=== PATIENT | female | born 2000 | race Caucasian/White ===

== ENCOUNTER 2024-11-10 19:14 | Emergency (ER) | payer BC, SELFPAY ==
[2024-11-10 19:15] VITALS: BP 128/69; PULSE 73; RESP 18; TEMP 36.9; O2SAT 100; BMI 31.7
[2024-11-10 20:11] LABS: Absolute Lymphocyte Count 1.27 X10^3/uL (0.83-4.51); Absolute Neutrophil Count 8.3 X10^3/uL (2.0-7.7); Basophil# 0.04 X10^3/uL; Basophil% 0.4 % (0-1); Eosinophil# 0.06 X10^3/uL; Eosinophils% 0.6 % (0-5); Hematocrit 40.3 % (37-47); Lymphocyte # 1.27 X10^3/ul (0.83-4.51); Lymphocyte % 12.4 % (19-41); Mean Corp Hgb Conc 32.3 g/dL (32-36); Mean Corpuscular Hgb 27.8 pg (27.0-32.0); Mean Corpuscular Volume 86.3 fL (81-99); Mean Platelet Vol. 9.5 fl (6.2-12.0); Monocyte# 0.54 X10^3/uL; Monocyte% 5.3 % (0-10); NRBC Flagged by Analyzer 0 % (0-5); Neutrophil % 81.1 % (47-70); Platelet Count 261 K/mm3 (150-450); RBC Distribution Width SD 40.2 fl (35.1-43.9); Red Blood Count 4.67 M/mm3 (4.2-5.4); White Blood Count 10.2 K/mm3 (4.4-11.0)
[2024-11-10 20:17] LABS: Internal QC Validated? YES +Cl - CLEAR BKGD; Pregnancy, Serum, hCG Quali. NEGATIVE Negative
--- NOTE | 2024-11-10 20:20 | ED.VIS.GI ---
HPI HPI - GI History of Present Illness Chief Complaint: Abd Pain Informant: patient and spouse/S.O. Narrative Narrative: 24-year-old female presenting to the emergency room with abdominal pain. Patient states that yesterday around 15 to 1600 hours she developed a pain in her lower abdomen. She has been taking Motrin and notes that it does seem to help. She states though that the pain is becoming more severe. Is still rather intermittent. She notes some dysuria at the end of urination. She is currently menstruating. She has not had any fever or diarrhea. No abdominal swelling. She notes no prior abdominal surgeries. No history of kidney stones. She does note some radiation towards the side into her back. PFSH PFSH Home Medications ?Medication ?Instructions ?Recorded ?Last Taken ?Type ondansetron 4 mg disintegrating 4 mg PO Q6H PRN PRN Nausea #15 tabs 11/10/24 Unknown Rx tablet phenazopyridine 200 mg tablet 200 mg PO TID #9 tabs 11/10/24 Unknown Rx (Pyridium) sulfamethoxazole 800 1 tab PO BID #9 TABLETS 11/10/24 Unknown Rx mg-trimethoprim 160 mg tablet Allergy/AdvReac Type Severity Reaction Status Date / Time No Known Allergies Allergy Verified 11/10/24 19:15 Surgical History H/O wisdom tooth extraction Social History household members: significant other current occupational status: employed Smoking Status: Never smoker ROS ROS ED Constitutional Constitutional ED: Denies chills, fever(s) or weight loss Eyes Eyes: Denies change in vision or diplopia ENT ENT ED: Denies ear pain, rhinorrhea or sore throat Cardiovascular Cardiovascular: Denies chest pain, orthopnea, palpitations or racing heartbeat Respiratory/Chest Respiratory/Chest: Denies cough, dyspnea or orthopnea Gastrointestinal Gastrointestinal: Reports abdominal pain and nausea; Denies diarrhea or vomiting Genitourinary Genitourinary ED: Reports dysuria; Denies hematuria or urinary frequency Musculoskeletal Musculoskeletal: Denies arthralgias or myalgias Integumentary Denies abscess or rash Neurologic Neurologic: Denies headache(s) or weakness Psychiatric Psychiatric: Denies anxiety, depression, suicidal ideation or suicidal thoughts Endocrine Endocrinology: Denies polydipsia, polyphagia or polyuria Allergic/Immunologic Allergic/Immunologic ED: Denies mouth swelling, tongue swelling or urticaria EXAM Physical Exam Const Vital Signs: 11/10/24 19:15 11/10/24 21:15 Temperature 98.4 F Temperature Source Oral Pulse Rate 73 63 Respiratory Rate 18 14 Blood Pressure 128/69 H 120/70 Blood Pressure Mean 88 86 Pulse Ox 100 100 Oxygen Delivery Method Room Air Positive well nourished and well developed General Appearance ED: well developed HEENT Reports normocephalic, head/scalp atraumatic and moist mucous membranes Eyes PERRL and EOMs intact bilaterally Neck no lymphadenopathy, supple and no JVD Resp normal respiratory effort and clear to auscultation bilaterally Cardio regular rate, regular rhythm and no murmurs GI normal to inspection, nondistended, normoactive bowel sounds and non-tender Palpation: soft Back/Spine no CVA tenderness and normal ROM Extremity normal to inspection General Extremety ED: Negative for edema General Extremity: Negative for edema Neuro oriented x3 and CN's II-XII intact bilaterally Sensorium / Orientation: alert Motor Exam: strength 5/5 throughout Psych mental status grossly normal Mood & Affect: Negative for depressed or tearful Skin no rashes or lesions noted and no wounds MDM MDM MDM Narrative Medical decision making narrative: Differential diagnosis includes but not limited to appendicitis acute cystitis ureterolithiasis colitis ileus PID Patient's white count 10.2 hemoglobin 13 platelet count is 261 test is negative BMP is within normal limits except for potassium of 3 urinalysis greater than 100 white cells greater than 100 red cells 1+ bacteria. This to be sent for culture. CT of the pelvis shows no acute findings. Patient received a dose of Toradol and Zofran. She has been resting comfortably. I will start the patient on Bactrim as well as some Pyridium. Monitor for worsening symptoms return if present History & Record Review Discussion w/independent historian: Patient Lab Data Attestation: I reviewed the patient's lab results. Labs: Laboratory Results - last 24 hr 11/10/24 11/10/24 20:00 20:30 WBC 10.2 RBC 4.67 Hgb 13.0 Hct 40.3 MCV 86.3 MCH 27.8 MCHC 32.3 RDW Std Deviation 40.2 RDW Coeff of William 13.0 Plt Count 261 MPV 9.5 Immature Gran % (Auto) 0.200 Neut % (Auto) 81.1 H Lymph % (Auto) 12.4 L [place] % (Auto) 5.3 Eos % (Auto) 0.6 Baso % (Auto) 0.4 Absolute Neuts (auto) 8.3 H Absolute Lymphs (auto) 1.27 Nucleated RBC % 0 Sodium 143 Potassium 3.0 L Chloride 110 H Carbon Dioxide 24.0 Anion Gap 9 BUN 8 Creatinine 0.72 Estim Creat Clear Calc 154.56 Est GFR (MDRD) Af Amer 129 Est GFR (MDRD) Non-Af 106 BUN/Creatinine Ratio 11.2 Glucose 96 Calcium 9.1 Serum , Qual NEGATIVE Urine Color Yellow Urine Clarity Sl. Cloudy Urine pH 6.0 Ur Specific [place] 1.010 Urine Protein 100 H Urine Glucose (UA) Normal Urine Ketones Negative Urine Occult Blood 250 H Urine Nitrite Negative Urine Bilirubin Negative Urine Urobilinogen Normal Ur Leukocyte Esterase 500 H Urine RBC > 100 SEEN Urine WBC >100 SEEN Ur Squamous Epith Cells 0-5 SEEN Urine Bacteria 1+ Urine Mucus 0 SEEN Radiography Diagnostic Testing: Clinical Impression(s) from Imaging Studies Abdomen/Pelvis CT 11/10/24 20:38 IMPRESSION: No acute process. One or more dose reduction techniques were used (e.g., Automated exposure control, adjustment of the mA and/or kV according to patient size, use of iterative reconstruction technique). Reading Location: [facility] Discharge Plan Triage Chief Complaint: Abd Pain ED Provider: Jatinder Madera Dx/Rx/DC Orders Clinical Impression: Abdominal pain, Acute cystitis Instructions: ED Cystitis Female Adult Prescriptions: New phenazopyridine [Pyridium] 200 mg tablet 200 mg PO TID Qty: 9 0RF ondansetron 4 mg tablet,disintegrating 4 mg PO Q6H PRN PRN (Reason: Nausea) Qty: 15 0RF sulfamethoxazole-trimethoprim 800-160 mg tablet 1 tab PO BID Qty: 9 0RF Primary Care Provider: Care Physician,No Primary Referrals: Care Physician,No Primary [Primary Care Provider] - Activity Restrictions/Additional Instructions: Treatment plenty stay hydrated. Please take the entire course of the antibiotic. Return if worsening or concerns Print Language: [place] Disposition Disposition: Home, Self Care
[2024-11-10 20:22] LABS: Anion Gap 9 (5-15); BUN 8 mg/dL (7-18); BUN/Creat Ratio 11.2 RATIO (10-20); Calcium,Total 9.1 mg/dL (8.5-10.1); Chloride 110 mmol/L (98-107); Creatinine, Serum 0.72 mg/dL (0.55-1.02); EST Glomerular Filtration Rate 106 mL/min (>60); Est Glom Filt Rate - Afr Amer 129 mL/min (>60); Estimated Creatinine Clearance 154.56 ml/min; Glucose 96 mg/dL (74-106); Sodium Level 143 mmol/L (136-145)
--- NOTE | 2024-11-10 20:38 | CT_ITS ---
PROCEDURE: CT abdomen pelvis without IV contrast REASON FOR EXAM: Pain, calculi TECHNIQUE: Multiple contiguous axial images through the abdomen and pelvis were obtained without the administration of intravenous contrast. Two-dimensional coronal and sagittal reformatted images were reconstructed. Low-dose imaging technique was utilized. COMPARISON: None. FINDINGS: Lung bases are clear. Unenhanced liver, spleen, pancreas and adrenal glands are intact. Gallbladder is satisfactory. No significant biliary ductal dilation. Bilateral extrarenal pelves. No renal calculi or hydronephrosis. Uterus and ovaries are present. Bladder is intact. No bowel obstruction, focal bowel wall thickening or significant perienteric inflammation. No pelvic free fluid. No free air. No abdominal aortic aneurysm or suspicious adenopathy. Superficial soft tissues are intact. No acute osseous abnormality. CT/Abdomen/Pelvis without Cont IMPRESSION: No acute process. One or more dose reduction techniques were used (e.g., Automated exposure contr ol, adjustment of the mA and/or kV according to patient size, use of iterative reconstruction technique). Reading Location: [facility]
[2024-11-10 21:13] LABS: Mucous, Urine 0 SEEN /hpf (<or=2+)
[2024-11-10 21:15] VITALS: BP 120/70; PULSE 63; RESP 14; O2SAT 100
[2024-11-10 21:45] LABS: Color, Urine Yellow (Yellow); Glucose, Dipstick Normal (Normal); Ketone-Dipstick Negative (Negative); Leukocyte Esterase-Dipstick 500 /ul (Negative); Nitrite-Dipstick Negative (Negative); Occult Blood-Urine 250 /ul (Negative); Protein-Dipstick 100 mg/dl (Negative); Urine Bilirubin Dipstick Negative (Negative); Urine Clarity Sl. Cloudy (Clear); Urine Urobilinogen Normal (Normal)
[2024-11-10 22:36] LABS: Bacteria 1+ /hpf (None Seen); Red Blood Cells-Urine > 100 SEEN /hpf (0-5); Squamous Epithelial Cells - UA 0-5 SEEN /hpf (5-10); White Blood Cells >100 SEEN /hpf (0-5)
[2024-11-10] MEDS: Smz/Tmp Ds Tablet 1 TABLET PO (22:44)
[2024-11-10 23:08] VITALS: BP 126/89; PULSE 74; RESP 15; TEMP 36.9; O2SAT 99
== END 2024-11-10 23:09 | disposition home or self-care (01) ==
PROVIDERS: Emergency Provider Emergency Medicine; Visit Provider Emergency Medicine
DX: R10.9 Unspecified abdominal pain (principal); N30.00 Acute cystitis without hematuria
CPT/HCPCS: 74176; 80048; 81001; 84703; 85025; 87077; 87086; 87088; 87186; 99283; A4216; J2405